=== PATIENT | male | born 1935 | race Caucasian/White ===

== ENCOUNTER 2019-12-01 16:06 | Emergency (ER) | payer MEDICARE, BC ==
[~2019-12-01] VITALS: Ht 177.8 cm; Wt 79.8 kg
--- OUTSIDE RECORDS SUMMARY | 2019-12-01 16:08 | XMS ---
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 E.DLouie V[facility] (12 MO.) [facility] ANGEL [facility] Louie TOTAL 3 NOTE: Visits indicate total known visits. ED/UCC VISIT TRACKING (12 MO.) 12/01/2019 16:07 [facility] [place] TYPE: Emergency COMPLAINT: - COLD SYMPTOMS 04/05/2019 20:13 [facility] TYPE: Emergency DIAGNOSES: - Lobar pneumonia, unspecified organism - Elevated white blood cell count, unspecified - Chest Pain - Unspecified atrial fibrillation - Shortness of breath 04/04/2019 21:53 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
[2019-12-01] MEDS ORDERED: ELIQUIS2.5 MG PO ×2 (16:31→17:40)
[2019-12-01] MEDS ORDERED: IPRATROPIUM BRO15 ML NAS (16:33)
[2019-12-01] MEDS ORDERED: NEURONTIN300 MG PO (17:35)
[2019-12-01] MEDS ORDERED: ULTRAM50 MG PO (17:36)
[2019-12-01] MEDS ORDERED: CLORAZEPATE DIP15 MG PO (17:36)
[2019-12-01] MEDS ORDERED: VITAMIN C500 M1 PO (17:37)
[2019-12-01] MEDS ORDERED: VITAMIN D350 MCG PO (17:38)
[2019-12-01] MEDS ORDERED: ASPIR-TRIN325 MG PO (17:38)
[2019-12-01] MEDS ORDERED: PREDNISONE20 MG PO (18:16)
[2019-12-01] MEDS ORDERED: DOXYCYCLINE HY100 MG PO (18:16)
--- NOTE | 2019-12-02 23:56 | PATH ---
[facility] [address], [place] [address] Signed ORDERING PHYSICIAN: Nick Soto MD PATIENT NAME: TELMA CLEVELAND GENDER: Riaz : 1935 Prior History: No cases found. SPECIMEN(S): No Source Given MOLECULAR PATHOLOGY RESULTS: SARS-CoV-2 Not Detected ADDITIONAL NOTES.: The Cohocton Fusion SARS-CoV-2 Assay is a multiplex real-time PCR (RT-PCR) in vitro diagnostic test intended for the qualitative detection of RNA from SARS-CoV-2 from individuals who meet COVID-19 clinical and/or epidemiological criteria. In general, SARS-CoV-2 RNA can be detected during the acute phase of infection. Positive results indicate the presence of SARS-CoV-2 RNA. Clinical correlation with patient history and other diagnostic information is necessary to determine patient infection status. Positive results do not rule out bacterial infection or co-infection with other viruses. Negative results do not preclude SARS-CoV-2 infection and should not be used as the sole basis for patient management decisions. Negative results must be combined with other clinical observations, patient history, and epidemiological information. The Cohocton Fusion SARS-CoV-2 Assay is not yet approved or cleared by the [place] FDA. When there are no FDA-approved or cleared tests available, and other criteria are met, FDA can make tests available under an emergency access mechanism called an Emergency Use Authorization (EUA). The EUA for this test is supported by the [place] of Health and Human Service's (HHS's) declaration that circumstances exist to justify the emergency use of in vitro diagnostics for the detection and/or diagnosis of the virus that causes COVID-19. This EUA will remain in effect for the duration of the COVID-19 declaration justifying emergency of IVDs, unless it is terminated or revoked by FDA, after which the test may no longer be used. The Cohocton Fusion SARS-CoV-2 Assay is for use only under EUA PATIENT NAME: TELMA CLEVELAND PATHOLOGY DATE OF : 33 REPORT #: [id number] PHYSICIAN: CYNTHIA DU PCP: JOE KEE MD REPORT IS CONFIDENTIAL AND NOT TO BE RELEASED WITHOUT AUTHORIZATION [facility] [address], [place] [address] Signed in [place] laboratories certified under the Clinical Laboratory Improvement Amendments of 1988 (CLIA) to perform high complexity tests. [email or web address] is certified under CLIA to perform high complexity clinical laboratory testing. PERFORMING LABORATORY.: Molecular testing was performed by [email or web address] [place] [address] (Fountain Helper: Roosevelt Benavides D.O.; CLIA#: [id number]) Diagnostician: System Interface Pathologist Electronically Signed 12/02/2019 Copies: ~ PATIENT NAME: TELMA CLEVELAND FLOYD PATHOLOGY DATE OF : 33 REPORT #: [id number] PHYSICIAN: CYNTHIA DU PCP: JOE KEE MD REPORT IS CONFIDENTIAL AND NOT TO BE RELEASED WITHOUT AUTHORIZATION
== END 2019-12-01 18:48 | disposition home or self-care (01) ==
LOC: ED 16:06
DX: J18.9 Pneumonia, unspecified organism (principal); I48.91 Unspecified atrial fibrillation; D64.9 Anemia, unspecified; Z87.891 Personal history of nicotine dependence; Z79.899 Other long term (current) drug therapy; Z79.82 Long term (current) use of aspirin
CPT/HCPCS: 71045; 87070; 87205; 94640; 94664; 99283-25; C9803; J1100

== ENCOUNTER 2020-03-10 13:49 | Emergency (ER) | payer MEDICARE, BC ==
[~2020-03-10] VITALS: Ht 177.8 cm; Wt 79.4 kg
[~2020-03-10 13:49] MED LIST: ASPIR-TRIN325 MG PO; CLORAZEPATE DIP15 MG PO; DOXYCYCLINE HY100 MG PO; ELIQUIS2.5 MG PO; IPRATROPIUM BRO15 ML NAS; NEURONTIN300 MG PO; PREDNISONE20 MG PO; ULTRAM50 MG PO; VITAMIN C500 M1 PO; VITAMIN D350 MCG PO
--- OUTSIDE RECORDS SUMMARY | 2020-03-10 13:52 | XMS ---
PreManage Notification: TELMA CLEVELAND Security Galley Cook Events No recent Security Events currently on file CRITERIA MET - History of Sepsis Dx - PDMP CARE PROVIDERS ERYN SEO [facility] Current PHONE: [phone] JOE KEE [facility] 12/05/2019-Current PHONE: [phone] LEANDRO SOLORZANO Nurse Practitioner: Family Current PHONE: Unknown Yovani has no Care Guidelines for this patient. E.D. VISIT COUNT (12 MO.) 2 [place] [address] [place] Dolan 2 [place]EL [place] TOTAL 5 NOTE: Visits indicate total known visits. ED/UCC VISIT TRACKING (12 MO.) 03/10/2020 13:50 [place] TYPE: Emergency COMPLAINT: - BACK PAIN [facility]17/2020 08[facility]09 [facility] DIAGNOSES: - Shortness of breath - Shortness of Breath - Chills 12/01/2019 16:07 ANGEL [place] TYPE: Emergency COMPLAINT: - COLD SYMPTOMS DIAGNOSES: - senior living (current) use of aspirin - Personal history of nicotine dependence - Cough - Anemia, unspecified - Contact with and (suspected) exposure to other viral communicable diseases - Unspecified atrial fibrillation - Pneumonia, unspecified organism - Other termite control representative (current) drug therapy 04/05/2019 20:13 [facility] TYPE: Emergency DIAGNOSES: - Lobar pneumonia, unspecified organism - Elevated white blood cell count, unspecified - Chest Pain - Unspecified atrial fibrillation - Shortness of breath 04/04/2019 21:53 [facility] [place] TYPE: Emergency COMPLAINT: - Eye bleeding DIAGNOSES: - Procedure and treatment not carried out for other reasons - Conjunctival hemorrhage, left eye INPATIENT VISIT TRACKING (12 MO.) 04/05/2019 20:13 [facility] TYPE: Internal Medicine DIAGNOSES: - Shortness of breath - Lobar pneumonia, unspecified organism - Other specified aplastic anemias and other bone marrow failure syndromes - Elevated white blood cell count, unspecified - Unspecified atrial fibrillation [id number]
[2020-03-10] MEDS ORDERED: ASPIRIN81 MG PO (14:22)
== END 2020-03-10 17:00 | disposition home or self-care (01) ==
LOC: ED 13:49
DX: M25.552 Pain in left hip (principal); M54.89 Other dorsalgia; I48.91 Unspecified atrial fibrillation; D64.9 Anemia, unspecified; Z79.899 Other long term (current) drug therapy; Z79.82 Long term (current) use of aspirin
CPT/HCPCS: 72192; 99283-25

== ENCOUNTER 2021-02-20 23:03 | Emergency (ER) | payer MEDICARE, BC ==
[~2021-02-20] VITALS: Ht 177.8 cm; Wt 77.1 kg
[~2021-02-20 23:03] MED LIST changes: +ASPIRIN81 MG PO
--- OUTSIDE RECORDS SUMMARY | 2021-02-20 23:06 | XMS ---
PreManage Notification: TELMA CLEVELAND Security Naturopath Events No recent Security Events currently on file CRITERIA MET - ASHLEY CARE PROVIDERS ERYN SEO [facility] Current PHONE: Unknown JOE KEE [facility] 12/05/2019-Current PHONE: Unknown LEANDRO SOLORZANO Nurse Practitioner: Current PHONE: Unknown Yovani has no Care Guidelines for this patient. E.D. VISIT COUNT (12 MO.) 1 [facility] [place] [address] [place] TOTAL 3 NOTE: Visits indicate total known visits. ED/UCC VISIT TRACKING (12 MO.) 02/20/2021 23:04 [place] TYPE: Emergency COMPLAINT: - RIGHT LEG PAIN 03/26/2020 02:30 [facility] [place] TYPE: Emergency COMPLAINT: - Uncontrolled Pain secondary to fracture DIAGNOSES: - Unspecified hearing loss, unspecified ear - Personal history of nicotine dependence - Unspecified atrial fibrillation - Chronic obstructive pulmonary disease, unspecified - Unspecified fracture of sacrum, subsequent encounter for fracture with routine healing - Disease of blood and blood-forming organs, unspecified - Sacrococcygeal disorders, not elsewhere classified 03/10/2020 13:50 [place] TYPE: Emergency COMPLAINT: - BACK PAIN DIAGNOSES: - Unspecified atrial fibrillation - Sacrococcygeal disorders, not elsewhere classified - Anemia, unspecified - penitentiary (current) use of aspirin - Other dorsalgia - Other medical terminologist (current) drug therapy - Pain in left hip INPATIENT VISIT TRACKING (12 MO.) 03/26/2020 03:40 [facility] [place] TYPE: Medical Surgical DIAGNOSES: - Lobar pneumonia, unspecified organism - Unspecified fracture of sacrum, subsequent encounter for fracture with routine healing - Sacrococcygeal disorders, not elsewhere classified - Anemia, unspecified - Personal history of nicotine dependence - Chronic obstructive pulmonary disease, unspecified - Sacrococcygeal disorders, not elsewhere classified - Unspecified atrial fibrillation - Unspecified hearing loss, unspecified ear [email or web address]
[2021-02-20] MEDS ORDERED: KLOR-CON M2020 MEQ PO (23:51)
[2021-02-20] MEDS ORDERED: FUROSEMIDE20 MG PO (23:51)
[2021-02-20] MEDS ORDERED: CLORAZEPATE DIP15 MG PO (23:51)
[2021-02-20] MEDS ORDERED: FENTANYL1 EAC4 TD (23:52)
[2021-02-20] MEDS ORDERED: COMBIVENT RESPIM4 GM INH (23:52)
== END 2021-02-21 01:24 | disposition home or self-care (01) ==
LOC: ED 23:03
DX: M79.671 Pain in right foot (principal); I48.91 Unspecified atrial fibrillation; Z79.899 Other long term (current) drug therapy; Z79.891 Long term (current) use of opiate analgesic; Z79.82 Long term (current) use of aspirin
CPT/HCPCS: 73630; 93971; 99284-25

== ENCOUNTER 2021-03-30 00:38 | Emergency (ER) | payer MEDICARE, BC ==
[~2021-03-30] VITALS: Ht 177.8 cm; Wt 77.1 kg
[~2021-03-30 00:38] MED LIST changes: +COMBIVENT RESPIM4 GM INH; +FENTANYL1 EAC4 TD; +FUROSEMIDE20 MG PO; +KLOR-CON M2020 MEQ PO
--- OUTSIDE RECORDS SUMMARY | 2021-03-30 00:42 | XMS ---
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 E.D. VISIT COUNT (12 MO.) [address] [facility] [address] [place] TOTAL 2 NOTE: Visits indicate total known visits. ED/UCC VISIT TRACKING (12 MO.) 03/30/2021 00:39 [place] TYPE: Emergency COMPLAINT: - LOWER ABD PAIN 02/20/2021 23:04 [facility] [place] TYPE: Emergency COMPLAINT: - RIGHT LEG PAIN DIAGNOSES: - Pain in right foot - intermediate (current) use of aspirin - Unspecified atrial fibrillation - intermediate (current) use of opiate analgesic - Other usp (current) drug therapy INPATIENT VISIT TRACKING (12 MO.) No inpatient visits to display in this time frame [email or web address]
[2021-03-30] MEDS ORDERED: FLOMAX0.4 MG (01:12)
[2021-03-30] MEDS ORDERED: AMITRIPTYLINE H25 MG PO (03:34)
== END 2021-03-30 03:53 | disposition home or self-care (01) ==
LOC: ED 00:38
DX: M79.2 Neuralgia and neuritis, unspecified (principal); I48.91 Unspecified atrial fibrillation; D64.9 Anemia, unspecified; Z79.82 Long term (current) use of aspirin; Z79.899 Other long term (current) drug therapy; Z79.51 Long term (current) use of inhaled steroids
CPT/HCPCS: 74177; 80053; 80503; 81001; 85025; 99284-25; Q9967

== ENCOUNTER 2021-08-19 17:48 | Inpatient (IN) | payer MEDICARE, BC ==
[~2021-08-19] VITALS: Ht 177.8 cm; Wt 73.3 kg
[~2021-08-19 17:48] MED LIST changes: +AMITRIPTYLINE H25 MG PO; +FLOMAX0.4 MG
--- OUTSIDE RECORDS SUMMARY | 2021-08-19 17:50 | XMS ---
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 E.D. VISIT COUNT (12 MO.) 2 [facility] 3 ANGEL Good TOTAL 5 NOTE: Visits indicate total known visits. ED/UCC VISIT TRACKING (12 MO.) 08/19/2021 17:49 [place] TYPE: Emergency COMPLAINT: - FEVER 07/21/2021 16:22 [facility] [place] TYPE: Emergency DIAGNOSES: - Abnormal Lab - Myelodysplastic syndrome, unspecified - Anemia, unspecified 05/28/2021 10:44 [facility] TYPE: Emergency DIAGNOSES: - Abnormal Lab - Myelodysplastic syndrome, unspecified - Aplastic anemia, unspecified 03/30/2021 00:39 AN[place]EL [place] TYPE: Emergency COMPLAINT: - LOWER ABD PAIN DIAGNOSES: - care home (current) use of inhaled steroids - Unspecified atrial fibrillation - Other meterman (current) drug therapy - Anemia, unspecified - meterman (current) use of aspirin - Lower abdominal pain, unspecified - Neuralgia and neuritis, unspecified 02/20/2021 23:04 AN[place]EL [place] TYPE: Emergency COMPLAINT: - RIGHT LEG PAIN DIAGNOSES: - Pain in right foot - care home (current) use of aspirin - Unspecified atrial fibrillation - meterman (current) use of opiate analgesic - Other halfway (current) drug therapy INPATIENT VISIT TRACKING (12 MO.) No inpatient visits to display in this time frame [id number]
[2021-08-19] MEDS ORDERED: TAMSULOSIN HCL0.4 MG PO (18:10)
[2021-08-19] MEDS ORDERED: KLOR-CON M2020 MEQ PO (18:10)
[2021-08-19] MEDS ORDERED: GABAPENTIN300 MG PO (18:10)
[2021-08-19] MEDS ORDERED: CINNAMON500 MG PO (18:11)
[2021-08-19] MEDS ORDERED: VITAMIN B122500 MC1 PO (18:11)
[2021-08-19] MEDS ORDERED: D3-501250 MCG PO (18:11)
[2021-08-19] MEDS ORDERED: LOW DOSE ASPIRI81 MG PO (18:11)
--- NOTE | 2021-08-19 20:30 | NUR ---
RECEIEVED REPORT FROM ED RN, PT ARRIVED WITH COOK TORTILLA VIA STRETCHER, PT TRANSFERRED SELF TO BED, CONNECTED TO MONITOR AND VITALS OBTAINED, FAMILY WITH PT, PT VERY HARD OF HEARING, HISTORY OBTAINED FROM FAMILY, ASSESSMENT COMPLETED, ROOM ORIENTAITON GIVEN TO PT AND FAMILY, ICE WATER PROVIDED TO PT, MEDS GIVEN PER MAR, BED ALARM ON, BED IN LOWEST POSITION, HOB ELEVATED, SIDE RAILS RAISED, CALL LIGHT WITHIN REACH
--- NOTE | 2021-08-20 01:00 | NUR ---
PT ASLEEP, FLUIDS INFUSING, BED ALARM ON, BED IN LOWEST POSITION, SIDE RAILS RAISED, CALL LIGHT WITHIN REACH
--- NOTE | 2021-08-20 03:14 | NUR ---
PT ASLEEP, FLUIDS REMAIN INFUSING, BED IN LOWEST POSITION, BED ALARM ON, SIDE RAILS RAISED, CALL LIGHT WITHIN REACH
--- NOTE | 2021-08-20 06:49 | NUR ---
PT ASLEEP, PREVIOUSLY SWITCHED FROM NASAL CANNULA TO OXYMASK WHILE SLEEPING DUE TO BREATHING MAINLY THROUGH MOUTH. IV FLUIDS INFUSING, BED IN LOWEST POSITION, HOB ELEVATED, BED ALARM ON, CALL LIGHT WITHIN REACH
--- NOTE | 2021-08-20 07:45 | NUR ---
PATIENT IN PLEASANT SPIRITS THIS MORNING. STANDING AT SIDE OF BED WITH 1PA TO USE URINAL. VITALS AND I&OS CHARTED. FREDIS NOVAK AWARE OF 99.5 TEMP. PATIENT IS HARD OF HEARING BUT IS ABLE TO ACTIVELY COMMUNICATE AND EXPRESS HIS NEEDS. CALL LIGHT IN EASY REACH.
--- NOTE | 2021-08-20 07:58 | NUR ---
IN PATIENT'S ROOM FOR ASSESSMENT AND VITALS. PATIENT IS 99.5 THIS AM AND FEELS WARM TO THE TOUCH. PT IS HARD OF HEARING, BUT HEARS BEST OUT OF RIGHT EAR. 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 PT DOES HAVE EXP WHEEZING AUSCULTATED FAIRLY EASILY WITHOUT STETHOSCOPE AND ALSO PRESENT WHEN LISTENING. ALSO SOME COARSE BREATH SOUNDS. TAKEN OFF OXYMASK AND PLACED BACK ON NC AT 4 L WITH HUMIDITY. LEG WRAPS TAKEN OFF LEGS, AND PATIENT STATES, "THEY'VE BEEN HAVING ME WEAR THOSE WRAPS FOR A COUPLE OF YEARS. HELPS WITH THE SWELLING, CAUSE THEY USED TO BE SWELLED UP LIKE CRAZY." NO OBVIOUS EDEMA BUT SOME MILD ANKLE EDEMA NOTED. PT WANTING TO KEEP HIS JEANS ON FOR COMFORT. HELPED PATIENT UP TO CHAIR FOR BREAKFAST AND NOW EATING. PT ALSO REPORTS, "MY BONES STOPPED MAKING BLOOD CELLS ABOUT 5 YEARS AGO, AND I'VE HAD TO HAVE THOSE SHOTS IN MY STOMACH EVERY 2 WEEKS [facility]. NOW I'M ON A NEW MEDICATION AND IT'S ONLY EVERY 3 WEEKS, BUT IT STILL DOESN'T WORK THAT GOOD." DISCUSSED PATIENT'S H/H LEVELS THIS AM. NS INFUSING AT 75 ML/HR INTO IV SITE IN RIGHT FOREARM W/O DIFFICULTY. CALL LIGHT IN REACH. PLAN OF CARE DISCUSSED. CONTINUE TO MONITOR. PT IS IN AFIB, HR IN THE 80-90s.
--- NOTE | 2021-08-20 10:45 | NUR ---
DR. CUELLAR IN TO SEE PATIENT. IVF DECREASED TO 50 ML/HR. PT WILL STAY IN CCU AT THIS TIME AND PLAN OF CARE REMAINS THE SAME. PT NEEDING MORE OXYGEN WHEN SLEEPING, CURRENTLY ON 3L, BUT WHEN HE STARTS TO MOUTH BREATH, DESATURATIONS DOWN TO 84% HAVE BEEN OBSERVED. OXYMASK HAS BEEN APPLIED OFF AND ON AND WHEN RESTING FOR HIS MOUTH BREATHING. CONTINUE TO MONITOR. PT UP TO BEDSIDE TO VOID 375 YELLOW URINE.
--- NOTE | 2021-08-20 11:08 | NUR ---
PATIENT'S AND DAUGHTER HAVE ARRIVED AND NOW VISITING WITH PATIENT. THEY HAVE BROUGHT IN PATIENT'S ADVANCE DIRECTIVE, WHICH REAFFIRMS WHAT PATIENT DISCUSSED WITH MD YESTERDAY REGARDING HIS CODE STATUS BEING DNR/DNI. THEY ALSO HAVE BROUGHT IN PATIENT'S HOME MED OF CHLOAZEPATE DIPOTASSIUM, WHICH HE TAKES AT BEDTIME FOR SLEEP. DR. CUELLAR STATES THIS IS OKAY TO ALLOW PATIENT TO RESUME TAKING WHILE HERE. PHARMACY CALLED TO [facility]. UPDATE PROVIDED ON PATIENT'S CONDITION TO FAMILY.
--- NOTE | 2021-08-20 11:29 | NUR ---
DR WANG OFFICE CONTACTED FOR LAST VISIT RECORDS AT THIS TIME.
--- NOTE | 2021-08-20 13:31 | NUR ---
PATIENT RESTING AT THIS TIME. WHEN SLEEPING, PT DESATS DOWN TO 79% WHILE ON 3L NC BUT PATIENT SEEMS TO BE MOUTH BREATHING. PT NOW ON OXYMASK WELL, AND SP02 IS CURRENTLY 99%. CONTINUE TO MONITOR.
--- NOTE | 2021-08-20 14:17 | NUR ---
PT IS ASLEEP, FREDIS NOVAK REQUESTED I NOT DISTURB AT THE MOMENT. WILL FOLLOW
--- NOTE | 2021-08-20 14:30 | NUR ---
PATIENT RESTING ON 2 L NC. PT STILL DENIES ANY SHORTNESS OF BREATH. CONTINUE TO MONITOR.
--- NOTE | 2021-08-20 18:02 | NUR ---
PATIENT HAS CONTINUED TO REST AFTER EATING DINNER. HR IS MORE ELEVATED THAN IT WAS EARLIER TODAY, CURRENTLY RANGING 90-110s, AFIB. TEMP AT THIS TIME 100.1 AND PATIENT WARMLY WRAPPED WITH BLANKETS HE C/O FEELING COLD. PT ALSO CONTINUES TO HAVE LARGE AMOUNTS OF GREENISH SPUTUM. LAST BP 120/74. PT STILL VERY WICHITA AND HARD TO COMMUNICATE WITH AT TIMES. PT'S AND DAUGHTER LEFT AROUND 1600. CONTINUE TO MONITOR.
--- NOTE | 2021-08-20 19:35 | NUR ---
PATIENT'S TEMP 101.[address] CUELLAR CALLED TO UPDATE ON THIS. ORDER REC'D TO HAVE BLOOD CULTURES DRAWN. THIS ORDER PLACED AND WHEN PHLEOBOTOMIST ARRIVES, PATIENT ADAMANETLY REFUSES. PT WAS WILLING TO TAKE TYLENOL FOR HIS FEVER. DR. CUELLAR CALLED BACK TO UPDATE ON HIS REFUSAL. CONTINUE TO MONITOR.
--- NOTE | 2021-08-20 19:50 | NUR ---
IN TO CHECK ON PT, FIRST THING PT STATES IS "IM NOT LETTING YOU PEOPLE TAKE ANY MORE BLOOD AND I DONT WANT TO HEAR ANOTHER WORD ABOUT IT". REASSURED PT THAT HIS WISHES WOULD BE RESPECTED AND THIS RN IS NOT TRYING TO COLLECT BLOOD FROM HIM. HE EVENTUALLY CALMS, PLAN OF CARE DISCUSSED FOR THE NIGHT AND HE CONTINUES TO TALK ABOUT NOT GIVING ANY MORE BLOOD "I DONT HAVE ANY TO SPARE" AND "ILL JUST GO TO DR WANG IF YOU PEOPLE HAVE A PROBLEM WITH IT". IVF INFUSING AT 50ML/HR. PT ON 2L/O2, BECOMING SHORT OF BREATH WITH TALKING AND YELLING. RR 24 AND SPO2 94%. HR 80'S. CALL LIGHT IN REACH AND PT AGREES NOT TO GET UP WITHOUT CALLING. RT THEN IN TO GIVE NEB TX, PT STATES TO HIM "THEY AINT TAKING ANY MORE OF MY BLOOD, THATS RIDICULOUS!"
--- NOTE | 2021-08-20 20:09 | NUR ---
ASSESSMENT DONE AFTER NEB TX COMPLETED. PT APPEARS SOB ALTHOUGH HE DENIES TROUBLE WITH HIS BREATHING. EXP WHEEZES HEARD IN LOWER LOBES BILAT, CLEAR IN UPPERS.HR INCREASED TO 105-115'S AT THIS TIME.
--- NOTE | 2021-08-20 21:14 | NUR ---
PT HAS HAD SOME VISITORS IN TO SEE HIM WHO ARE LEAVING NOW. PT CALLS TO ASK FOR BLANKETS TO BE TAKEN OFF OF HIM HE NOW FEELS HOT AND SWEATY. RESTING HR CONT 105-115, SPO2 92% ON 2L/O2 AND RR 18.
--- NOTE | 2021-08-20 22:13 | NUR ---
PT NOW RESTING IN BED WITH EYES CLOSED, APPEARS TO BE SLEEPING. HR 90'S, RESP EVEN AND UNLABORED, RR 14 AND SPO2 94% ON 2L.
--- NOTE | 2021-08-20 23:52 | NUR ---
PT AWAKENS, IN TO DO ASSESMENT. PT DNEIES NEEDS AND STATES HE IS COMFORTABLE. "IM OKAY, I DONT NEED ANYTHING." CONT TO HAVE OCCASIONAL PRODUCTIVE COUGH. SPO2 94% ON 2L, RR 18. LUNG SOUNDS UNCHANGED.
--- NOTE | 2021-08-21 01:08 | NUR ---
PT STARTED TO GET OUT OF BED ON HIS OWN, SETTING OFF BED ALARM. RN IN TO ASSIST HIM WITH STANDING AT BEDSIDE TO USE URINAL, WAS ABLE TO VOID 250ML VANDANA URINE THEN POSITIONED BACK IN BED WITH WARM BLANKET TO GO BACK TO SLEEP WITH BED ALARM ON.
--- NOTE | 2021-08-21 08:00 | NUR ---
IN PATIENT'S ROOM FOR ASSESSMENT AND VITALS, BREAKFAST AND FIRE ADJUSTER. PT UP TO CHAIR W/ SBA AND WALKING WELL. PT STATES HE FEELS GOOD, AND DENIES SHORTNESS OF BREATH. AUDIBLE WHEEZES HEARD. LUNG SOUNDS HAVE WHEEZES AND SOME CRACKLES TO RIGHT LUNG BASE. PT NOW EATING BREAKFAST. PT REMAINS ON 2 L NC WIHT SP02 OF 94% ON SPOT CHECK. CALL LIGHT WITHIN REACH. CONTINUE TO MONITOR. PT IN GOOD SPIRITS. PT ADAMENT THROUGH THE NIGHT THAT HE WOULD NOT ALLOW ANY FURTHER BLOOD DRAWS.
--- NOTE | 2021-08-21 10:17 | NUR ---
PATIENT RESTING AT THIS TIME. HR IN THE 80s, AFIB. SP02 IS 90% CURRENTLY WHILE SLEEPING ON 0.5 L NC. TURNED OFF TO ASSESS IF HE CAN TOLERATING BEING COMPLETELY OFF OR NOT. WILL MONITOR.
--- NOTE | 2021-08-21 11:12 | NUR ---
PATIENT'S AND DAUGHTER CYDNEY HAVE ARRIVED AND NOW IN ROOM VISITING WITH PATIENT. PATIENT REMAINS ON 0.5 L OF OXYGEN AND CURRENT SP02 IS 95%. WILL CONTINUE TO MONITOR.
--- NOTE | 2021-08-21 12:21 | NUR ---
DR. CUELLAR IN TO SEE PATIENT AND PLAN OF CARE DISCUSSED. PT WILL TRANSFER TO THE MEDICAL FLOOR W/O TELEMETRY. PT HAS REMAINED AFEBRILE SINCE LAST EVENING, AND LONG HE FEVERS REMAIN UNDER CONTROL, POTENTIAL D/C HOME TOMORROW. FAMILY AWARE OF PLAN OF CARE AND ALL QUESTIONS ANSWERED.
--- NOTE | 2021-08-21 13:10 | NUR ---
PT UP TO BEDSIDE TO USE URINAL AND BACK TO BED. NO OTHER NEEDS AT THIS TIME. CALL LIGHT IN REACH.
--- NOTE | 2021-08-21 14:26 | NUR ---
REPORT GIVEN TO SALVADOR ON MED/SURG AND ALL BELONGINGS TAKEN WITH PATIENT, INCLUDING HIS HOME MED IN PATIENT BIN. PATIENT REMAINS ON ROOM AIR WITH SP02 OF 92% PRIOR TO TAKING OFF PULSE OXIMETERY. WILL CONTINUE TO MONITOR.
--- NOTE | 2021-08-21 14:30 | NUR ---
REPORT RECEIVED FROM SCARLET MCNEAL, ALL QUESTIONS ANSWERED. ASSUMED CARE. PT LYING AWAKE IN BED, ON RA O2 SAT 95%, RESPIRIATIONS 16 EVEN AND UNLABORED. PT ORIENTED TO ROOM AND CALL LIGHT. PT DENIES FURTHER NEEDS AT THIS TIME. CALL LIGHT WITHIN REACH.
[2021-08-21] MEDS ORDERED: VITAMIN D325 MCG PO (15:13)
[2021-08-21] MEDS ORDERED: B-121000 MC2 PO (15:14)
[2021-08-21] MEDS ORDERED: MULTIVITAMIN1 EACH PO (15:15)
--- NOTE | 2021-08-21 15:39 | NUR ---
PT RESTING IN BED WATCHING TV. DENIES NEEDS AT THIS TIME, CALL LIGHT IN REACH, BED ALARM ON.
--- NOTE | 2021-08-21 16:30 | NUR ---
Spoke with pt and he is not happy. Wants to go home and is very upset he was transferred from CCU to [facility] floor. Pt becomes less angry as we discuss plan for going home. Pt lives in [place] with his . DME. He drives. Children have been assisting family with grocery shop- ping and driving for the last year. Pt states he will go home and Christie mcnamara will assist.
--- NOTE | 2021-08-21 18:16 | EKG ---
[facility] [address] [facility] [place], [place] [address] Signed Atrial fibrillation with rapid ventricular response Abnormal ECG No previous ECGs available Confirmed by EVETTE CUELLAR MD ([id number]) on 08/21/2021 6:16:05 PM Electronically Signed By: EVETTE CUELLAR MD 08/21/211815 PATIENT NAME: TELMA CLEVELAND Electrocardiogram DATE OF : 33 PHYSICIAN: EVETTE CUELLAR MD REPORT #: [id number] REPORT IS CONFIDENTIAL AND NOT TO BE RELEASED WITHOUT AUTHORIZATION
--- NOTE | 2021-08-22 00:24 | NUR ---
PT APPEARS TO BE SLEEPING QUIETLY.HIS BED ALARM IS ON FOR SAFETY. CALL LIGHT IS IN REACH.
--- NOTE | 2021-08-22 00:52 | NUR ---
PT WAS UP TO THE BATHROOM AND PASSED A SMALL AMOUNT OF LOOSE BROWN STOOL.SHE STATES HER ABD IS ONLY SLIGHTLY UNCOMFORTABLE AT THIS TIME. DENIES ANY NEED FOR PAIN MEDS. ASSISTED BACK TO BED. CALL LIGHT IN REACH.
--- NOTE | 2021-08-22 02:43 | NUR ---
PT APPEARS TO BE SLEEPING. CALL LIGHT IN REACH. DID NOT AWAKEN PT.
--- NOTE | 2021-08-22 03:14 | NUR ---
PT GOT UP, SETTING OFF BED ALARM, IN TO BATHROOM VOIDING INTO TOILET. ASSISTED BACK TO BED, FRESH WATER GIVEN, CALL LIGHT IN HAND ALONG WITH REMOTE IN OTHER HAND, PT REMINDED TO USE CALL LIGHT TO GET UP. BED ALARM ON.
--- NOTE | 2021-08-22 06:54 | NUR ---
PT HAS REFUSED TO USE THE URINAL TO VOID. HE HAS VOIDED X3 THIS SHIFT. REFUSES TO USE THE CALL LIGHT.STATES HE GOING SOON HIS FAMILY ARRIVES TO PICK HIM UP. PT BECOMES VERY SHORT OF BREATH WITH GETTING UP TO THE BATHROOM. HE HAS INSP AND EXP WHEEZES. SATS ARE 94 % ON ROOM AIR. AFEBRILE THIS SHIFT
--- NOTE | 2021-08-22 09:14 | NUR ---
MORNING ASSESSMENT COMPLETE. PT AMBULATING INDEPENDENTLY IN ROOM, DRESSED IN STREET CLOTHES. PT UNHAPPY WITH BEING MOVED FROM CCU TO MED/SURG. STATES HE DID NOT RECIEVE DINNER YESTERDAY, REFUSES TO EAT BREAKFAST. REQUESTED AND GIVEN DIET PEPSI. PT EXPRESSED FRUSTRATION WITH BED ALARM AND STAFF ASSISTING HIM TO RESTROOM. EXPLAINED IT WAS FOR SAFETY. PT DENIES FURTHER NEEDS AT THIS TIME. CALL LIGHT WITHIN REACH.
--- NOTE | 2021-08-22 10:09 | NUR ---
PT SITTING UP IN CHAIR, WATCHING TV. DENIES NEEDS AT THIS TIME. ORIENTED FARM MACHINERY ERECTOR LIGHT USE, WITHIN REACH.
[2021-08-22] MEDS ORDERED: CEFPODOXIME PR200 MG PO (11:48)
[2021-08-22] MEDS ORDERED: ERYTHROMYCIN1 GM OPTH (11:49)
== END 2021-08-22 12:10 | disposition home or self-care (01) | DRG 871 ==
LOC: ED 17:48 → CCU 19:24 → MS 08-21 14:20
PROVIDERS: ADMIT Internal Medicine; ATTEND Internal Medicine
DX: A41.50 Gram-negative sepsis, unspecified (principal); J96.01 Acute respiratory failure with hypoxia; G93.41 Metabolic encephalopathy; J15.6 Pneumonia due to other Gram-negative bacteria; J44.0 Chronic obstructive pulmonary disease with (acute) lower respiratory infection; Z66 Do not resuscitate; Z20.822 Contact with and (suspected) exposure to COVID-19; D46.4 Refractory anemia, unspecified; I48.91 Unspecified atrial fibrillation; N40.0 Benign prostatic hyperplasia without lower urinary tract symptoms; F13.90 Sedative, hypnotic, or anxiolytic use, unspecified, uncomplicated; G89.4 Chronic pain syndrome; H91.90 Unspecified hearing loss, unspecified ear; Z90.49 Acquired absence of other specified parts of digestive tract; Z98.890 Other specified postprocedural states; Z79.82 Long term (current) use of aspirin; Z79.891 Long term (current) use of opiate analgesic; Z79.899 Other long term (current) drug therapy
CPT/HCPCS: 36415; 71045; 80053; 81001; 83605; 85025; 85060; 85610; 85730; 86850; 86900; 86901; 86922; 87040; 87070; 87205; 87502; 93005; 93010; 94640; 94760; 96374; 96375; 99285-25; A9270; J0456; J0696; J7030; U0003